=== PATIENT | female | born 2005 | race Caucasian/White ===

== ENCOUNTER 2024-04-14 17:38 | Emergency (ER) | payer OTHER, SELFPAY ==
--- NOTE | ~2024-04-14 | CT_ITS ---
EXAMINATION: CT abdomen pelvis w con DATE: 04/15/2024 03:51 INDICATION: Generalized abdominal pain TECHNIQUE: Computed tomography (CT) of the abdomen and pelvis was performed with 100 cc Omnipaque 350 intravenous contrast. The dose-length product was 293.42 mGy-cm. Automated exposure control and iter ative reconstruction technique were employed. COMPARISON: None. FINDINGS: Heart size normal. No significant pleural or pericardial effusion. No free air or free flui d. No significant vascular abnormality. No lymphadenopathy. The liver, spleen, pancreas, adrenal glands and kidneys are unremarkable. No acute osseous abnormalit y. Normal appendix. IMPRESSION: 1. No acute abdominal abnormality. Reviewed, dictated and finalized at location [facility]
[2024-04-14 17:46] VITALS: BP 119/68; PULSE 98; RESP 20; TEMP 36.5; O2SAT 100
--- NOTE | 2024-04-14 18:41 | ED_ITS ---
HPI - General Adult General Chief complaint: Abdominal Pain <Kika Parkinson July, LEVEL VIAL INSIDE GRINDER - Last Filed: 04/14/24 19:18> Stated complaint: abdominal pain <Kika Parkinson July,N - Last Filed: 04/14/24 19:18> Time Seen by Provider: 04/14/24 18:41 <Kika Parkinson July, LEVEL VIAL INSIDE GRINDER - Last Filed: 04/14/24 19:18> Focused HPI: Verenice Cunha is a 19 y/o female with complaints of having abdominal pain for about 3 days along with vaginal bleeding. She states that her last menstrual cycle was about 1 week ago. She reports of having nausea and vomited 2 days ago. She has eaten and drank fluids today and kept it down. Last BM was today Denies changes with urine Denies any fever/chills GENERAL: Well-appearing, well-nourished, and in no acute distress. HEAD: Normocephalic, atraumatic. CHEST: Clear to auscultation. ?No respiratory distress. HEART: Regular rate and rhythm.? NEURO: ?Alert and oriented x3. Patient screened in triage and initial orders placed.? ?Additional care and disposition to be based upon?diagnostic testing and treatment. <Kika Parkinson July,N - Last Filed: 04/14/24 19:18> Related Data Allergies/adverse reactions: Allergies Allergy/AdvReac Type Severity Reaction Status Date / Time No Known Allergies Allergy Verified 04/14/24 17:46 <Kika Parkinson July,N - Last Filed: 04/14/24 19:18> Review of Systems 2 Review of Systems: All systems reviewed & are unremarkable except as noted in HPI and below <Chikis Mendoza, LEVEL VIAL INSIDE GRINDER - Last Filed: 04/15/24 04:38> Exam 2 Narrative: GENERAL: Well appearing, well-nourished, non-toxic, in no acute distress. HEAD: Normocephalic, atraumatic. NECK: Supple. No adenopathy, no masses. RESPIRATORY: Airway patent, respirations nonlabored. Clear to auscultation bilaterally, no rales, rhonchi, wheezing. CARDIOVASCULAR: Regular rate and rhythm without murmurs, rubs, or gallops. Peripheral pulses 2+ and equal bilaterally. ABDOMINAL: Soft, generalized tenderness with palpation, nondistended, no hepatosplenomegaly. Normoactive BS. MUSCULOSKELETAL: Moves all extremities. Strength/ROM intact without gross deformities. SKIN: Warm, dry, normal color. No rashes. NEURO: A&O X3. Speech clear. Cranial nerves II-XII grossly intact. No ataxic movements. PSYCHIATRIC: Appropriate mood and affect. Normal interaction. <Chikis Mendoza APRN - Last Filed: 04/15/24 04:38> Course TOOLSMITH/PA Physician Supervision Patient's HPI, Exam, and MDM were reviewed and I agreed with the workup and disposition done in the emergency department by the MLP. I was available for consultation, but was not directly involved with patient's care nor did I evaluate the patient. <Jose De Jesus Dawson MD - Last Filed: 04/15/24 08:12> Vital Signs Vital signs: Vital Signs Temperature 36.5 C 04/14/24 17:46 Pulse Rate 98 04/14/24 17:46 Respiratory Rate 20 04/14/24 17:46 Blood Pressure 119/68 04/14/24 17:46 Pulse Oximetry 100 04/14/24 17:46 Oxygen Delivery Room Air 04/14/24 17:46 Temperature 36.5 C 04/14/24 17:46 Pulse Rate 84 04/15/24 04:46 Respiratory Rate 15 04/15/24 04:46 Blood Pressure 114/60 04/15/24 04:46 Pulse Oximetry 100 04/15/24 04:46 Oxygen Delivery Room Air 04/14/24 17:46 <Kika Balderrama APRN - Last Filed: 04/14/24 19:18> Vital Signs Temperature 36.5 C 04/14/24 17:46 Pulse Rate 98 04/14/24 17:46 Respiratory Rate 20 04/14/24 17:46 Blood Pressure 119/68 04/14/24 17:46 Pulse Oximetry 100 04/14/24 17:46 Oxygen Delivery Room Air 04/14/24 17:46 Temperature 36.5 C 04/14/24 17:46 Pulse Rate 84 04/15/24 04:46 Respiratory Rate 15 04/15/24 04:46 Blood Pressure 114/60 04/15/24 04:46 Pulse Oximetry 100 04/15/24 04:46 Oxygen Delivery Room Air 04/14/24 17:46 <Chikis Mendoza APRN - Last Filed: 04/15/24 04:38> Vital Signs Temperature 36.5 C 04/14/24 17:46 Pulse Rate 98 04/14/24 17:46 Respiratory Rate 20 04/14/24 17:46 Blood Pressure 119/68 04/14/24 17:46 Pulse Oximetry 100 04/14/24 17:46 Oxygen Delivery Room Air 04/14/24 17:46 Temperature 36.5 C 04/14/24 17:46 Pulse Rate 84 04/15/24 04:46 Respiratory Rate 15 04/15/24 04:46 Blood Pressure 114/60 04/15/24 04:46 Pulse Oximetry 100 04/15/24 04:46 Oxygen Delivery Room Air 04/14/24 17:46 <Jose De Jesus Dawson MD - Last Filed: 04/15/24 08:12> Medical Decision Making MDM Narrative Medical decision making narrative: Verenice Cunha is a 19 y/o female with complaints of having abdominal pain for about 3 days along with vaginal bleeding. She states that her last menstrual cycle was about 1 week ago. She reports of having nausea and vomited 2 days ago. She has eaten and drank fluids today and kept it down. Last BM was today. Denies changes with urine. Denies any fever/chills Labs Ordered: CBC, CMP, urinalysis, lipase Imaging Ordered: CT abdomen pelvis (d/t pt's generalized abdominal pain) Medications Ordered: Toradol 15 mg IV, Macrobid p.o., 1 L normal saline IV fluid Results: Patient's CBC and CMP were unremarkable, besides mild dehydration. Her urinalysis indicates patient has UTI. CT abdomen pelvis scan indicates no acute abnormalities. Diagnosis: Urinary tract infection Patient Education/Shared MDM: Results shared with patient. Patient endorses relief of pain after Toradol administration. She will be given her 1st dose of Macrobid here in the ER and then discharged with a prescription home. Patient should complete her entire dose. She should follow-up with her primary care provider in the next 2-3 days to ensure her infection has cleared. Patient strongly advised to maintain hydration upon discharge. She verbalizes understanding and is in agreement plan. Vital signs stable at time of discharge. All questions answered. <Chikis L. Kelly, LEVEL VIAL INSIDE GRINDER - Last Filed: 04/15/24 04:38> Differential Diagnosis Differential Diagnosis: UTI, dehydration, COVID, influenza, gastroenteritis <Chikis Mendoza, LEVEL VIAL INSIDE GRINDER - Last Filed: 04/15/24 04:38> Vital Signs Vital Signs: Vital Signs Temperature 36.5 C 04/14/24 17:46 Pulse Rate 98 04/14/24 17:46 Respiratory Rate 20 04/14/24 17:46 Blood Pressure 119/68 04/14/24 17:46 Pulse Oximetry 100 04/14/24 17:46 Oxygen Delivery Room Air 04/14/24 17:46 Temperature 36.5 C 04/14/24 17:46 Pulse Rate 84 04/15/24 04:46 Respiratory Rate 15 04/15/24 04:46 Blood Pressure 114/60 04/15/24 04:46 Pulse Oximetry 100 04/15/24 04:46 Oxygen Delivery Room Air 04/14/24 17:46 <Kika Balderrama, LEVEL VIAL INSIDE GRINDER - Last Filed: 04/14/24 19:18> Vital Signs Temperature 36.5 C 04/14/24 17:46 Pulse Rate 98 04/14/24 17:46 Respiratory Rate 20 04/14/24 17:46 Blood Pressure 119/68 04/14/24 17:46 Pulse Oximetry 100 04/14/24 17:46 Oxygen Delivery Room Air 04/14/24 17:46 Temperature 36.5 C 04/14/24 17:46 Pulse Rate 84 04/15/24 04:46 Respiratory Rate 15 04/15/24 04:46 Blood Pressure 114/60 04/15/24 04:46 Pulse Oximetry 100 04/15/24 04:46 Oxygen Delivery Room Air 04/14/24 17:46 <Chikis Mendoza, LEVEL VIAL INSIDE GRINDER - Last Filed: 04/15/24 04:38> Vital Signs Temperature 36.5 C 04/14/24 17:46 Pulse Rate 98 04/14/24 17:46 Respiratory Rate 20 04/14/24 17:46 Blood Pressure 119/68 04/14/24 17:46 Pulse Oximetry 100 04/14/24 17:46 Oxygen Delivery Room Air 04/14/24 17:46 Temperature 36.5 C 04/14/24 17:46 Pulse Rate 84 04/15/24 04:46 Respiratory Rate 15 04/15/24 04:46 Blood Pressure 114/60 04/15/24 04:46 Pulse Oximetry 100 04/15/24 04:46 Oxygen Delivery Room Air 04/14/24 17:46 <Jose De Jesus Dawson MD - Last Filed: 04/15/24 08:12> Lab Data Lab results reviewed: Yes I reviewed the patient's lab results. <Chikis Mendoza, LEVEL VIAL INSIDE GRINDER - Last Filed: 04/15/24 04:38> Result diagrams: 04/14/24 22:22 04/14/24 22:22 <Kika Balderrama, LEVEL VIAL INSIDE GRINDER - Last Filed: 04/14/24 19:18> Labs: Lab Results 04/14/24 Range/Units 22:22 WBC 7.9 (4.5-10.0) K/mm3 RBC 4.56 (4.2-5.4) M/mm3 Hgb 13.5 (12.0-15.0) g/dL Hct 41.2 (37.0-47.0) % MCV 90.4 (80-100) fl MCH 29.6 (26-34) pg MCHC 32.8 (32-36) g/dl RDW 13.1 (11.5-14.5) % Plt Count 317 (150-375) k/mm3 MPV 10.3 (7.4-10.4) fl Immature Gran % (Auto) 0.3 (0-0.5) % Neut % (Auto) 53.3 (45.5-73.1) % Lymph % (Auto) 34.5 (18.3-44.2) % [place] % (Auto) 9.9 H (2.6-8.5) % Eos % (Auto) 1.4 (0-4.4) % Baso % (Auto) 0.6 (0.2-1.2) % Lymph # (Auto) 2.72 (0.9-3.2) K/mm3 [place] # (Auto) 0.8 H (0.1-0.6) K/mm3 Eos # (Auto) 0.1 (0-0.3) K/mm3 Baso # (Auto) 0.1 (0.0-0.1) K/mm3 Abs Immat Gran (auto) 0.02 (0.00-0.031) K/mm3 Absolute Neuts (auto) 4.2 (1.3-6.7) K/mm3 Absolute Nucleated RBC 0.000 (0.0-0.012) K/mm3 Nucleated RBC % 0.0 (0.0-0.2) % Sodium 139 (137-145) mmol/L Potassium 4.2 (3.4-5.0) mmol/L Chloride 104 (98-107) mmol/L Carbon Dioxide 24 (22-30) mmol/L Anion Gap 11 (4-12) mmol/L BUN 13 (7-17) mg/dL Creatinine 0.56 L (0.7-1.0) mg/dL Estim Creat Clear Calc 117 ml/min Estimated GFR > 60 (59 - ) Glucose 94 (65-110) mg/dL Calcium 8.8 (8.4-10.2) mg/dL Total Bilirubin 0.4 (0.2-1.3) mg/dL AST 38 H (14-36) U/L ALT 39 H (6-35) U/L Alkaline Phosphatase 88 (38-126) U/L Total Protein 8.0 (6.3-8.2) g/dL Albumin 4.4 (3.5-5.1) g/dL Lipase 52 (23-300) U/L Urine Color Yellow (Yellow) Urine Appearance Turbid H (Clear) Urine pH 8.0 (5.0-9.0) Ur Specific Howard 1.020 (1.001-1.035) Urine Protein 1+ H (Negative) mg/dL Urine Glucose (UA) Negative (Negative) mg/dL Urine Ketones Negative (Negative) mg/dL Ur Blood (Man) 3+ H (Negative) Urine Nitrate Negative (Negative) Urine Bilirubin Negative (Negative) Urine Urobilinogen 1.0 (<2.0) mg/dL Leukocyte Esterase Rfl Trace H (Negative) ENRIQUE/UL Urine RBC 6-10 H (0-2) /hpf Urine WBC 21-50 H (0-3) /hpf Ur Squamous Epith Cells Few (Few) /hpf Urine Bacteria 1+ H /hpf Urine Casts 0-2 Urine Test Negative <Kika Balderrama, LEVEL VIAL INSIDE GRINDER - Last Filed: 04/14/24 19:18> Lab Results 04/14/24 Range/Units 22:22 WBC 7.9 (4.5-10.0) K/mm3 RBC 4.56 (4.2-5.4) M/mm3 Hgb 13.5 (12.0-15.0) g/dL Hct 41.2 (37.0-47.0) % MCV 90.4 (80-100) fl MCH 29.6 (26-34) pg MCHC 32.8 (32-36) g/dl RDW 13.1 (11.5-14.5) % Plt Count 317 (150-375) k/mm3 MPV 10.3 (7.4-10.4) fl Immature Gran % (Auto) 0.3 (0-0.5) % Neut % (Auto) 53.3 (45.5-73.1) % Lymph % (Auto) 34.5 (18.3-44.2) % [place] % (Auto) 9.9 H (2.6-8.5) % Eos % (Auto) 1.4 (0-4.4) % Baso % (Auto) 0.6 (0.2-1.2) % Lymph # (Auto) 2.72 (0.9-3.2) K/mm3 [place] # (Auto) 0.8 H (0.1-0.6) K/mm3 Eos # (Auto) 0.1 (0-0.3) K/mm3 Baso # (Auto) 0.1 (0.0-0.1) K/mm3 Abs Immat Gran (auto) 0.02 (0.00-0.031) K/mm3 Absolute Neuts (auto) 4.2 (1.3-6.7) K/mm3 Absolute Nucleated RBC 0.000 (0.0-0.012) K/mm3 Nucleated RBC % 0.0 (0.0-0.2) % Sodium 139 (137-145) mmol/L Potassium 4.2 (3.4-5.0) mmol/L Chloride 104 (98-107) mmol/L Carbon Dioxide 24 (22-30) mmol/L Anion Gap 11 (4-12) mmol/L BUN 13 (7-17) mg/dL Creatinine 0.56 L (0.7-1.0) mg/dL Estim Creat Clear Calc 117 ml/min Estimated GFR > 60 (59 - ) Glucose 94 (65-110) mg/dL Calcium 8.8 (8.4-10.2) mg/dL Total Bilirubin 0.4 (0.2-1.3) mg/dL AST 38 H (14-36) U/L ALT 39 H (6-35) U/L Alkaline Phosphatase 88 (38-126) U/L Total Protein 8.0 (6.3-8.2) g/dL Albumin 4.4 (3.5-5.1) g/dL Lipase 52 (23-300) U/L Urine Color Yellow (Yellow) Urine Appearance Turbid H (Clear) Urine pH 8.0 (5.0-9.0) Ur Specific Howard 1.020 (1.001-1.035) Urine Protein 1+ H (Negative) mg/dL Urine Glucose (UA) Negative (Negative) mg/dL Urine Ketones Negative (Negative) mg/dL Ur Blood (Man) 3+ H (Negative) Urine Nitrate Negative (Negative) Urine Bilirubin Negative (Negative) Urine Urobilinogen 1.0 (<2.0) mg/dL Leukocyte Esterase Rfl Trace H (Negative) ENRIQUE/UL Urine RBC 6-10 H (0-2) /hpf Urine WBC 21-50 H (0-3) /hpf Ur Squamous Epith Cells Few (Few) /hpf Urine Bacteria 1+ H /hpf Urine Casts 0-2 Urine Test Negative <Chikis Mendoza, LEVEL VIAL INSIDE GRINDER - Last Filed: 04/15/24 04:38> Lab Results 04/14/24 Range/Units 22:22 WBC 7.9 (4.5-10.0) K/mm3 RBC 4.56 (4.2-5.4) M/mm3 Hgb 13.5 (12.0-15.0) g/dL Hct 41.2 (37.0-47.0) % MCV 90.4 (80-100) fl MCH 29.6 (26-34) pg MCHC 32.8 (32-36) g/dl RDW 13.1 (11.5-14.5) % Plt Count 317 (150-375) k/mm3 MPV 10.3 (7.4-10.4) fl Immature Gran % (Auto) 0.3 (0-0.5) % Neut % (Auto) 53.3 (45.5-73.1) % Lymph % (Auto) 34.5 (18.3-44.2) % [place] % (Auto) 9.9 H (2.6-8.5) % Eos % (Auto) 1.4 (0-4.4) % Baso % (Auto) 0.6 (0.2-1.2) % Lymph # (Auto) 2.72 (0.9-3.2) K/mm3 [place] # (Auto) 0.8 H (0.1-0.6) K/mm3 Eos # (Auto) 0.1 (0-0.3) K/mm3 Baso # (Auto) 0.1 (0.0-0.1) K/mm3 Abs Immat Gran (auto) 0.02 (0.00-0.031) K/mm3 Absolute Neuts (auto) 4.2 (1.3-6.7) K/mm3 Absolute Nucleated RBC 0.000 (0.0-0.012) K/mm3 Nucleated RBC % 0.0 (0.0-0.2) % Sodium 139 (137-145) mmol/L Potassium 4.2 (3.4-5.0) mmol/L Chloride 104 (98-107) mmol/L Carbon Dioxide 24 (22-30) mmol/L Anion Gap 11 (4-12) mmol/L BUN 13 (7-17) mg/dL Creatinine 0.56 L (0.7-1.0) mg/dL Estim Creat Clear Calc 117 ml/min Estimated GFR > 60 (59 - ) Glucose 94 (65-110) mg/dL Calcium 8.8 (8.4-10.2) mg/dL Total Bilirubin 0.4 (0.2-1.3) mg/dL AST 38 H (14-36) U/L ALT 39 H (6-35) U/L Alkaline Phosphatase 88 (38-126) U/L Total Protein 8.0 (6.3-8.2) g/dL Albumin 4.4 (3.5-5.1) g/dL Lipase 52 (23-300) U/L Urine Color Yellow (Yellow) Urine Appearance Turbid H (Clear) Urine pH 8.0 (5.0-9.0) Ur Specific Howard 1.020 (1.001-1.035) Urine Protein 1+ H (Negative) mg/dL Urine Glucose (UA) Negative (Negative) mg/dL Urine Ketones Negative (Negative) mg/dL Ur Blood (Man) 3+ H (Negative) Urine Nitrate Negative (Negative) Urine Bilirubin Negative (Negative) Urine Urobilinogen 1.0 (<2.0) mg/dL Leukocyte Esterase Rfl Trace H (Negative) ENRIQUE/UL Urine RBC 6-10 H (0-2) /hpf Urine WBC 21-50 H (0-3) /hpf Ur Squamous Epith Cells Few (Few) /hpf Urine Bacteria 1+ H /hpf Urine Casts 0-2 Urine Test Negative <Jose De Jesus Dawson MD - Last Filed: 04/15/24 08:12> Discharge Plan Discharge Clinical Impression: Urinary tract infection, Mild dehydration <Kika Balderrama LEVEL VIAL INSIDE GRINDER - Last Filed: 04/14/24 19:18> Patient Disposition: Home, Self-Care <Kika Balderrama LEVEL VIAL INSIDE GRINDER - Last Filed: 04/14/24 19:18> Condition: Stable <Kika Parkinson July, LEVEL VIAL INSIDE GRINDER - Last Filed: 04/14/24 19:18> Instructions: Antibiotic Form, Urinary Tract Infection in Women (ED) <Kika Balderrama, LEVEL VIAL INSIDE GRINDER - Last Filed: 04/14/24 19:18> Additional Instructions: Please return to the ER with an worsening symptoms. Follow-up with primary care provider in the next 2-3 days. Take all medications as prescribed. <Kika Balderrama, LEVEL VIAL INSIDE GRINDER - Last Filed: 04/14/24 19:18> Patient Language: Bengali <Kika Parkinson July, LEVEL VIAL INSIDE GRINDER - Last Filed: 04/14/24 19:18> Prescriptions: New nitrofurantoin monohyd/m-cryst [Macrobid] 100 mg capsule 100 mg PO Q12H 5 Days Qty: 10 0RF Rx Instructions: must administer with a meal/food <Kika Balderrama LEVEL VIAL INSIDE GRINDER - Last Filed: 04/14/24 19:18> Follow-up/Referrals: PHYSICIAN,PRODUCE ASSOCIATE [Primary Care Provider] - <Kika Balderrama, LEVEL VIAL INSIDE GRINDER - Last Filed: 04/14/24 19:18> Time of Disposition: 04:38 <Kika Balderrama APRN - Last Filed: 04/14/24 19:18> 04:38 <Chikis Mendoza APRN - Last Filed: 04/15/24 04:38> 04:38 <Jose De Jesus Dawson MD - Last Filed: 04/15/24 08:12>
[2024-04-14 22:31] LABS: Basophils Absolute Auto 0.1 K/mm3 (0.0-0.1); Basophils Percent Auto 0.6 % (0.2-1.2); Eosinophils Absolute Auto 0.1 K/mm3 (0-0.3); Eosinophils Percent Auto 1.4 % (0-4.4); Hematocrit 41.2 % (37.0-47.0); Hemoglobin 13.5 g/dL (12.0-15.0); Immature Granulocyte Absolute 0.02 K/mm3 (0.00-0.031); Immature Granulocyte Percent A 0.3 % (0-0.5); Lymphocytes Absolute Auto 2.72 K/mm3 (0.9-3.2); Lymphocytes Percent Auto 34.5 % (18.3-44.2); Mean Corpuscular HGB Conc 32.8 g/dl (32-36); Mean Corpuscular Hemoglobin 29.6 pg (26-34); Mean Corpuscular Volume 90.4 fl (80-100); Mean Platelet Volume 10.3 fl (7.4-10.4); Monocytes Absolute Auto 0.8 K/mm3 (0.1-0.6); Monocytes Percent Auto 9.9 % (2.6-8.5); Neutrophils Absolute Auto 4.2 K/mm3 (1.3-6.7); Neutrophils Percent Auto 53.3 % (45.5-73.1); Platelet Count Result 317 k/mm3 (150-375); Red Blood Count 4.56 M/mm3 (4.2-5.4); Red Cell Distribution Width 13.1 % (11.5-14.5); White Blood Count 7.9 K/mm3 (4.5-10.0)
[2024-04-14 22:32] LABS: Add Urine Microscopic? YES; Appearance Urine Turbid (Clear); Bacteria Urine 1+ /hpf; Bilirubin Urine Negative (Negative); Blood Urine 3+ (Negative); Color Urine Yellow (Yellow); Glucose Urine UA Negative (Negative); Ketones Urine Negative (Negative); Leukocyte Esterase Ur Trace LEU/UL (Negative); Nitrate Urine Negative (Negative); Non Pathogenic Casts 0-2; Protein Urine 1+ mg/dL (Negative); Squamous Epithelial Cell Urine Few /hpf (Few); WBC Urine 21-50 /hpf (0-3)
[2024-04-14 22:45] LABS: Alanine Aminotransferase 39 U/L (6-35); Albumin Level 4.4 g/dL (3.5-5.1); Alkaline Phosphatase 88 U/L (38-126); Anion Gap 11 mmol/L (4-12); Aspartate Amino Transferase 38 U/L (14-36); Bilirubin,Total 0.4 mg/dL (0.2-1.3); Blood Urea Nitrogen 13 mg/dL (7-17); Calcium 8.8 mg/dL (8.4-10.2); Carbon Dioxide 24 mmol/L (22-30); Chloride 104 mmol/L (98-107); Estimated CRCL calculation 117 ml/min; Estimated Glomerular Filt Rate > 60; Glucose 94 mg/dL (65-110); Lipase 52 U/L (23-300); Potassium 4.2 mmol/L (3.4-5.0); Sodium 139 mmol/L (137-145)
--- OUTSIDE RECORDS SUMMARY | 2024-04-14 23:07 | XMS_ITS | Encounter Summary ---
Author Organization [facility] Address 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
--- OUTSIDE RECORDS SUMMARY | 2024-04-14 23:07 | XMS_ITS | Encounter Summary ---
Author Organization [facility] Address [address] [place] [address] Care Team Providers Care Car Spotter Name Role Phone Lemuel Eubanks MD Primary Care Provider [phone] Encounter Details Date Type Department Care Team (Late st Contact Info) Description 2004 Outpatient Historical [facility] [address] [facility] [address] [address] Anthony Anthony MD NO ADDRESS ON FILE Social History Tobacco Use Types Packs/Day Years Used Date Smoking Tobacco: Never Assessed Comments Unknown Sex and Gender Information Value Date Recorded Sex Assigned at Not on file 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
--- OUTSIDE RECORDS SUMMARY | 2024-04-14 23:07 | XMS_ITS | Encounter Summary ---
Author Organization [facility] Address 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 Negative: ??Group A Strep Screen Negative screen result was confirmed by culture. No Group A, C, or G beta Streptococcus isolated. ? [facility] Specimen from throat (specimen) 07/24/2008 3:46 PM CDT 07/24/2008 3:59 PM CDT us Pallavi Jackson MD MICROBIOLOGY - GENERAL ORD ERABLES Final Result INTERFACE SYSTEM Refer to clinic/hospital department [facility] CLIA# [id number] [address] [place] [address] documented in this encounter Visit Diagnoses Not on filedocumented in this encounter Care Teams Doll Dresser Relationship Specialty [place] [address] [address] PCP - General 01/22/07 documented as of this encounter
--- OUTSIDE RECORDS SUMMARY | 2024-04-14 23:07 | XMS_ITS | Encounter Summary ---
Author Organization [facility] Address [address] [place] [address] Care Team Providers Care Stock Sheets Cleaner Inspector Name Role Phone Lemuel Eubanks MD Primary Care Provider [phone] Encounter Details Date Type Department Care Team (Late st Contact Info) Description 2004 Outpatient Historical [facility] [address] [facility] [address] [address] Anthony Anthony MD NO ADDRESS ON FILE Social History Tobacco Use Types Packs/Day Years Used Date Smoking Tobacco: Never Assessed Comments Unknown Sex and Gender Information Value Date Recorded Sex Assigned at Not on file 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
--- OUTSIDE RECORDS SUMMARY | 2024-04-14 23:07 | XMS_ITS | Encounter Summary ---
Author Organization [facility] Address [address] [place] [address] Care Team Providers Care Community Affairs Director Name Role Phone Lemuel Eubanks MD Primary Care Provider [phone] Encounter Details Date Type Department Care Team (Late st Contact Info) Description 2004 Outpatient Historical [facility] [address] 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
--- OUTSIDE RECORDS SUMMARY | 2024-04-14 23:07 | XMS_ITS | Encounter Summary ---
Author Organization [facility] Address [address] [place] [address] Care Team Providers Care Consumer Electronics Merchandiser Name Role Phone Lemuel Eubanks MD Primary Care Provider [phone] Encounter Details Date Type Department Care Team (Late st Contact Info) Description 2004 Outpatient Historical [facility] [address] [facility] [address] [address] Anthony Anthony MD NO ADDRESS ON FILE Social History Tobacco Use Types Packs/Day Years Used Date Smoking Tobacco: Never Assessed Comments Unknown Sex and Gender Information Value Date Recorded Sex Assigned at Not on file 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
--- OUTSIDE RECORDS SUMMARY | 2024-04-14 23:07 | XMS_ITS | Encounter Summary ---
Author Organization [facility] Address [address] [place] [address] Care Team Providers Care Scouring Machine Tender Name Role Phone Lemuel Eubanks MD Primary Care Provider [phone] Encounter Details Date Type Department Care Team (Late st Contact Info) Description 2004 Outpatient Historical [facility] [address] [facility] [address] [address] Anthony Anthony MD NO ADDRESS ON FILE Social History Tobacco Use Types Packs/Day Years Used Date Smoking Tobacco: Never Assessed Comments Unknown Sex and Gender Information Value Date Recorded Sex Assigned at Not on file 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
--- OUTSIDE RECORDS SUMMARY | 2024-04-14 23:07 | XMS_ITS | Referral Summary ---
Author Organization [facility] Address [address] [facility] [place] [address] Care Team Providers Care Collective Bargaining Specialist Name Role Phone Unavailable Primary Care Provider Unavailabl e Source Comments [facility],non-owned Affiliates and Associated Physician Practices is amultiple site organization consisting of ambulatory clinics and hospital sitesin [place], [place], [place] and [place]. This disclosure is being madepursuant to the Care Everywhere program and may not contain all information available regarding this patient. Last updated 17.[employer] [facility] Allergies No known active allergies Medications Be aware that medications may not be up to date on this document. Always verify current medications with the patient. No known medications Active Problems Problem Noted Date Diagnosed Date Attention deficit hyperactiv ity disorder (ADHD), combined type 04/03/2019 Glaucoma 12/28/2013 06/08/2023 Overview (06/08/2023): Glaucoma Immunizations Name Administration Dates Next Due DTAP 5 PERTUSSIS ANTIGENS 2004 DTaP VACCINE IM (6wk-6yrs) 01/13/2008,,2004,05/12,2004 HEP A PEDS 2 DOSE 10/27/2008,12/26/2006 HEP B VACCINE, PED/ADOL 2004,2004, HIB-PRP-OMP 3 DOSE 01/30/2005,200 5,2004,02/28 HIB-PRP-T 4 DOSE 2004 Human Papilloma Virus Nineva lent Vaccine 01/24/2016,01/17/2015 INFLUENZA VACCINE, QUADR. (A FLURIA, FLUZONE QUADRIVALENT; 6MO+) (IIV4) 12/14/2016 INFLUENZA VACCINE, QUADR. (F LUZONE; FLULAVAL; FLUARIX; AFLURIA QUADRIVALENT; 6MO+), 0.5 ML (IIV4) 04/03/2019,12/27/2017,01/24/2016,01/17 GABRIEL VACCINE QUAD LAIV4 PF NASAL 12/28/2013,2012 MENINGOCOCCAL CONJUGATE (MCV4P) 01/17/2015 MMR 01/13/2008,01/22/2006 PNEUMOCOCCAL PCV7 CONJ, PEDS 2004 POLIO IPV 01/13/2008, 6,2004,02/28 Pneumococcal Pcv13 Conj 12/26/2006,01/30/2005, TDAP (7yrs+) 06/07/2023,01/17/2015 VARICELLA 01/13/2008,01/22/2006 Social History Tobacco Use Types Packs/Day Years Used Date Smoking Tobacco: Never Smokeless Tobacco: Never Sex and Gender Information Value Date Recorded Sex Assigned at Not on file Gender Identity Not on file Sexual Orientation Not on file Last Filed Vital Signs Vital Sign Reading Time Taken Comments Blood Pressure 145/92 06/07/2023 2:12 AM CDT Pulse 110 06/07/2023 2:12 AM CDT Temperature 37.1 ??C (98.8 ??F) 06/07/2023 2:12 AM CD T Respiratory Rate 18 06/07/2023 2:12 AM CDT Oxygen Saturation 93% 06/07/2023 2:12 AM CDT Inhaled Oxygen Concentration - - Weight 55.8 kg (123 lb) 06/07/2023 2:12 AM CDT Height 162.6 cm (5' 4 ) 06/07/2023 2:12 AM CDT Body Mass Index 21.11 06/07/2023 2:12 AM CDT Plan of Treatment Not on file
--- OUTSIDE RECORDS SUMMARY | 2024-04-14 23:07 | XMS_ITS | Encounter Summary ---
Author Organization [facility] Address [address] [place] [address] Care Team Providers Care Major Account Representative Name Role Phone Lemuel Eubanks MD Primary Care Provider [phone] Encounter Details Date Type Department Care Team (Late st Contact Info) Description 2004 Outpatient Historical [facility] [address] [facility] [address] [address] Anthony Anthony MD NO ADDRESS ON FILE Social History Tobacco Use Types Packs/Day Years Used Date Smoking Tobacco: Never Assessed Comments Unknown Sex and Gender Information Value Date Recorded Sex Assigned at Not on file Legal Sex Female 5:24 AM CERAMIC ENGINEER Gender Identity Not on file Sexual Orientation Not on file documented as of this encounter Plan of Treatment Not on file documented as of this encounter Visit Diagnoses Not on filedocumented in this encounter Care Teams Major Account Representative Relationship Specialty Start [place] [address] [place] [address] PCP - General 01/22/07 documented as of this encounter
--- OUTSIDE RECORDS SUMMARY | 2024-04-14 23:07 | XMS_ITS | Encounter Summary ---
Author Organization [facility] Address [address] [place] [address] Care Team Providers Care Children'S Tutor Name Role Phone Edward Suarez MD Unavailable [phone] Reason for Visit * Reason Onset Date Comments MEDICATION REFILL 12/30/2018 Encounter Details Date Type Department Care Team (Late st Contact Info) Description 12/30/2018 Refill [facility] - [facility] [address] [place] [address] Edward Suarez MD [address] [place] [address] MEDICATION REFILL Social History Tobacco Use Types Packs/Day Years [...] on filedocumented in this encounter Care Teams Children'S Tutor Relationship Specialty Start Date End Date Edward Suarez MD [address] [place] [address] PCP - Attributed-[employer] 08/16/18 08/13/19 documented as of this encounter
--- OUTSIDE RECORDS SUMMARY | 2024-04-14 23:07 | XMS_ITS | Encounter Summary ---
Author Organization [facility] Address [address] [place] [address] Care Team Providers Care Manager Strategic Partnerships Name Role Phone Lemuel Eubanks MD Primary Care Provider [phone] Encounter Details Date Type Department Care Team (Late st Contact Info) Description 2004 Outpatient Historical [facility] [address] [facility] [address] [address] Anthony Anthony MD NO ADDRESS ON FILE Social History Tobacco Use Types Packs/Day Years Used Date Smoking Tobacco: Never Assessed Comments Unknown Sex and Gender Information Value Date Recorded Sex Assigned at Not on file Legal Sex Female 5:24 AM COUNTER WEIGHER Gender Identity Not on file Sexual Orientation Not on file documented as of this encounter Plan of Treatment Not on file documented as of this encounter Visit Diagnoses Not on filedocumented in this encounter Care Teams Manager Strategic Partnerships Relationship Specialty [place] [address] [place] [address] PCP - General 01/22/07 documented as of this encounter
--- OUTSIDE RECORDS SUMMARY | 2024-04-14 23:07 | XMS_ITS | Referral Summary ---
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 Immunizations Name Administration Dates Next Due DTaP 01/13/2008, 6,2004,05/12,2004 HPV9 01/24/2016,01/17/2015 Hep A, Pediatric 10/27/2008,12/26/2006 Hep B, Adolescent or Pediatric 2004,2003,2004 Hib (PRP-OMP) 01/30/2005, 5,2004,02/28 IPV 01/13/2008, 6,2004,02/28 Influenza, Live, Intranasal, Quadrivalent 12/28/2013,03/28/2012 Influenza, Quadrivalent, Spl it, Preservative Free, Intramuscular 01/24/2016,01/17/2015 MMR 01/13/2008,01/22/2006 Meningococcal MCV4P (Menactra) 01/17/2015 Pneumococcal Conjugate PCV 13 12/26/2006, 005,2004 Tdap 01/17/2015 Varicella 01/13/2008,01/22/2006 Social History Tobacco Use Types Packs/Day Years Used Date Smoking Tobacco: Never Assessed Comments Unknown Sex and Gender Information Value Date Recorded Sex Assigned at Not on file Legal Sex Female 2:13 AM PADDER Gender Identity Not on file Sexual Orientation Not on file Last Filed Vital Signs Vital Sign Reading Time Taken Comments Blood Pressure 120/70 10/23/2023 5:10 PM CDT Pulse 71 10/23/2023 5:10 PM CDT Temperature 36.8 ??C (98.2 ??F) 10/23/2023 5:10 PM CD T Respiratory Rate 14 10/23/2023 5:10 PM CDT Oxygen Saturation 99% 10/23/2023 5:10 PM CDT Inhaled Oxygen Concentration - - Weight 49.4 kg (109 lb) 08/31/2021 7:48 PM CDT Height 162.6 cm (5' 4 ) 08/31/2021 7:48 PM CDT Body Mass Index 18.71 08/31/2021 7:48 PM CDT Plan of Treatment Not on file Insurance [facility] CHOICE OOS [facility] SIG [id number] [facility] CHOICE PLUS [facility] CHOICE OOS BLUE [facility] CHOICE OOS Care Teams Nonprofit Financial Controller Relationship Specialty Start Date End Date Maryse Hudson DO [address] [place] [address] PCP - General 08/31/21
--- OUTSIDE RECORDS SUMMARY | 2024-04-14 23:07 | XMS_ITS | Encounter Summary ---
Author Organization [facility] Address [address] [facility] Attn: [place] [address] Care Team Providers Care Laundry Bag Punch Operator Name Role Phone Lemuel Eubanks MD Primary Care Provider [phone] Encounter Details Date Type Department Care Team (Late st Contact Info) Description 2004 Inpatient Historical Anthony Anthony MD NO ADDRESS ON FILE SINGL BORN IN HOSP-NO C/DELIVERY (Primary Dx) Social History Tobacco Use Types Packs/Day Years Used Date Smoking Tobacco: Never Assessed Comments Unknown Sex and Gender Information Value Date Recorded Sex Assigned at Not on file Legal Sex Female 5:24 AM ALUMINUM CONTAINER TESTER Gender Identity Not on file Sexual Orientation Not on file documented as of this encounter Plan of Treatment Not on file documented as of this encounter Visit Diagnoses Diagnosis Single liveborn, born in hospital, delivered without mention of delivery- Primary documented in this encounter Care Teams Laundry Bag Punch Operator Relationship Specialty [place] [address] [place] [address] PCP - General 01/22/07 documented as of this encounter
--- OUTSIDE RECORDS SUMMARY | 2024-04-14 23:07 | XMS_ITS | Encounter Summary ---
Author Organization [employer] Address [address] [place] [address] Care Team Providers Care Tax Lawyer Name Role Phone Lemuel Kitchen MD Primary Care Provider [phone] Encounter Details Date Type Department Care Team (Late st Contact Info) Description 03/02/2008 Outpatient Historical [place] [address] [address] Urinary Tract Infection, Site not Specified Social History Tobacco Use Types Packs/Day Years Used Date Smoking Tobacco: Never Assessed Comments Unknown Sex and Gender Information Value Date Recorded Sex Assigned at Not on file Legal Sex Female 5:24 AM CIA AGENT Gender Identity Not on file Sexual Orientation Not on file documented as of this encounter Plan of Treatment Not on file documented as of this encounter Procedures Procedure Name Priority Date/Time Associated Diagnosis Comments US RETROPERITONEAL COMPLETE Timed Study 03/02/2008 1:20 PM CIA AGENT documented in this encounter Results * US RETROPERITONEAL COMPLETE (03/02/2008 1:20 PM CIA AGENT) Anatomical Region Laterality Modality Pelvis Other 03/02/2008 1:20 PM CIA AGENT Narrative 03/03/2008 10:50 AM CIA AGENT ? [place] [facility] ? [address] ?[place] ??[address] ?Admit Date: 03/02/2008 ? VERENICE CUNHA ?Sex: F ?Admit Prov: LEMUEL KITCHEN ? Date: 2005 ?Primary Care Prov: KEILY LITTLE H ?CMRN: [id number] ?Room: [facility] ? SSN: ? IMAGING SERVICES ?Ordering Prov: N/A ? Accession Number: [id number] ?Interpretation ? ULTRASOUND RETROPERITONEUM, 03/02/2008. ? Clinical History: Urinary tract infection. ? Sagittal and transverse real-time examination reveals the right kidney to ? be 7.5 cm in length and left kidney to be 7.4 cm in length. There is normal ? echogenicity and cortical medullary definition bilaterally. There is no ? evidence for mass, hydronephrosis, focal scarring, or shadowing stones on ? either side. ? There is mild bladder wall thickening particularly in the region of the ? trigone. The bladder otherwise appears unremarkable. The bladder wall ? thickening allows consideration of cystitis. ? Conclusion: ? Negative renal ultrasound. ? Some mild bladder wall thickening. ? . ? Dictated by: ??STEFFANIE NEGRETE ?03/02/2008 14:22 ? Electronically signed by: ??STEFFANIE NEGRETE ??03/03/2008 10:48 ? Transcribed: ??03/02/2008 23:04 ?[facility] Procedure Note Provider, Historical - 03/03/2008 [facility] [address] [place], [place] [address] Admit Date: 03/02/2008 VERENICE CUNHA Sex: F Admit Prov: LEMUEL KITCHEN Date:2005 Primary Care Prov: KEILY LITTLE CMRN: [id number] Room: [facility] SSN: IMAGING SERVICES Ordering Prov: N/A Interpretation ULTRASOUND RETROPERITONEUM, 03/02/2008. Clinical History: Urinary tract infection. Sagittal and transverse real-time examination reveals the rightkidney to be 7.5 cm in length and left kidney to be 7.4 cm in length. There isnormal echogenicity and cortical medullary definition bilaterally. There isno evidence for mass, hydronephrosis, focal scarring, or shadowingstones on either side. There is mild bladder wall thickening particularly in the region ofthe trigone. The bladder otherwise appears unremarkable. The bladderwall thickening allows consideration of cystitis. Conclusion: Negative renal ultrasound. Some mild bladder wall thickening. . Dictated by: STEFFANIE NEGRETE 03/02/2008 14:22 Electronically signed by: STEFFANIE NEGRETE 03/03/2008 10:48 Transcribed: 03/02/2008 23:04 [facility] us Lemuel Kitchen MD ORDERABLES Final Result documented in this encounter Visit Diagnoses Diagnosis Urinary tract infection, site not specified documented in this encounter Care Teams Tax Lawyer Relationship Specialty [place] [address] [place] [address] PCP - General 01/22/07 documented as of this encounter
--- OUTSIDE RECORDS SUMMARY | 2024-04-14 23:07 | XMS_ITS | Encounter Summary ---
Author Organization [facility] Address [address] [place] [address] Care Team Providers Care Winder Contort Operator Name Role Phone Lemuel Eubanks MD Primary Care Provider [phone] Encounter Details Date Type Department Care Team (Late st Contact Info) Description [address] [facility] Services [address] [address] Olamide Mckay AU.D [address] [place] [address] Social History Tobacco Use Types Packs/Day Years Used Date Smoking Tobacco: Never Assessed Comments Unknown Sex and Gender Information Value Date Recorded Sex Assigned at Not on file Legal Sex Female 5:24 AM GARMENT INSPECTOR Gender Identity Not on file Sexual Orientation Not on file documented as of this encounter Plan of Treatment Not on file documented as of this encounter Visit Diagnoses Not on filedocumented in this encounter Care Teams Winder Contort Operator Relationship Specialty [place] [address] [place] [address] PCP - General 01/22/07 documented as of this encounter
--- OUTSIDE RECORDS SUMMARY | 2024-04-14 23:07 | XMS_ITS | Encounter Summary ---
Author Organization [facility] Address [address] [place] [address] Care Team Providers Care Maintenance Mechanic Name Role Phone Lemuel Eubanks MD Primary Care Provider [phone] Encounter Details Date Type Department Care Team (Late st Contact Info) Description 2004 Outpatient Historical [facility] [address] [facility] [address] [address] Anthony Anthony MD NO ADDRESS ON FILE Social History Tobacco Use Types Packs/Day Years Used Date Smoking Tobacco: Never Assessed Comments Unknown Sex and Gender Information Value Date Recorded Sex Assigned at Not on file Legal Sex Female 5:24 AM ANIMAL KEEPER Gender Identity Not on file Sexual Orientation Not on file documented as of this encounter Plan of Treatment Not on file documented as of this encounter Visit Diagnoses Not on filedocumented in this encounter Care Teams Maintenance Mechanic Relationship Specialty [place] [address] [place] [address] PCP - General 01/22/07 documented as of this encounter
--- OUTSIDE RECORDS SUMMARY | 2024-04-14 23:07 | XMS_ITS | Encounter Summary ---
Author Organization [facility] Address [address] [place] [address] Care Team Providers Care Textile Machine Maintenance Mechanic Name Role Phone Lemuel Eubanks MD Primary Care Provider [phone] Encounter Details Date Type Department Care Team (Late st Contact Info) Description 2004 Outpatient Historical [facility] [address] [facility] [address] [address] Anthony Anthony MD NO ADDRESS ON FILE Social History Tobacco Use Types Packs/Day Years Used Date Smoking Tobacco: Never Assessed Comments Unknown Sex and Gender Information Value Date Recorded Sex Assigned at Not on file Legal Sex Female 5:24 AM BIOFUELS PLANT OPERATIONS ENGINEER Gender Identity Not on file Sexual Orientation Not on file documented as of this encounter Plan of Treatment Not on file documented as of this encounter Visit Diagnoses Not on filedocumented in this encounter Care Teams Textile Machine Maintenance Mechanic Relationship Specialty [place] [address] [place] [address] PCP - General 01/22/07 documented as of this encounter
--- OUTSIDE RECORDS SUMMARY | 2024-04-14 23:07 | XMS_ITS | Encounter Summary ---
Author Organization [facility] Address [address] [place] [address] Care Team Providers Care Harm Reduction Worker Name Role Phone Lemuel Eubanks MD Primary Care Provider [phone] Encounter Details Date Type Department Care Team (Late st Contact Info) Description 2004 Outpatient Historical [facility] [address] [facility] [address] [address] Anthony Anthony MD NO ADDRESS ON FILE Social History Tobacco Use Types Packs/Day Years Used Date Smoking Tobacco: Never Assessed Comments Unknown Sex and Gender Information Value Date Recorded Sex Assigned at Not on file Legal Sex Female 5:24 AM FOOD PROCESSING CHEMIST Gender Identity Not on file Sexual Orientation Not on file documented as of this encounter Plan of Treatment Not on file documented as of this encounter Visit Diagnoses Not on filedocumented in this encounter Care Teams Harm Reduction Worker Relationship Specialty [place] [address] [place] [address] PCP - General 01/22/07 documented as of this encounter
--- OUTSIDE RECORDS SUMMARY | 2024-04-14 23:07 | XMS_ITS | Patient Health Summary ---
Author Organization [facility] Address [address] [facility] [place] [address] Care Team Providers Care [place] Name Role Phone Unavailable Primary Care Provider Unavailabl e Note from [facility],non-owned Affiliates and Associated Physician Practices is amultiple site organization consisting of ambulatory clinics and hospital sitesin [place], [place] and [place]. This disclosure is being madepursuant to the Care Everywhere program and may not contain all information available regarding this patient. Last updated 17.[facility] Allergies No known active allergies Medications Be aware that medications may not be up to date on this document. Always verify current medications with the patient. No known medications Active Problems Problem Noted Date Diagnosed Date Attention deficit hyperactiv ity disorder (ADHD), combined type 04/03/2019 Glaucoma 12/28/2013 06/08/2023 Immunizations * DTAP 5 PERTUSSIS ANTIGENS(Given 2004) * DTaP VACCINE IM (6wk-6yrs)(Given 01/13/2008, 01/22/2006, 2004, 2004, 2004) * HEP A PEDS 2 DOSE(Given 10/27/2008, 12/26/2006) * HEP B VACCINE, PED/ADOL(Given 2004, 2004, 2004) * HIB-PRP-OMP 3 DOSE(Given 01/30/2005, 2004, 2004, 2004) * HIB-PRP-T 4 DOSE(Given 2004) * Human Papilloma Virus Ninevalent Vaccine(Given 01/24/2016, 01/17/2015) * INFLUENZA VACCINE, QUADR. (AFLURIA, FLUZONE QUADRIVALENT; 6MO+) (IIV4)(Given 12/14/2016) * INFLUENZA VACCINE, QUADR. (FLUZONE; FLULAVAL; FLUARIX; AFLURIA QUADRIVALENT; 6MO+), 0.5 ML (IIV4)(Given 04/03/2019, 12/27/2017, 01/24/2016, 01/17/2015) * GABRIEL VACCINE QUAD LAIV4 PF NASAL(Given 12/28/2013, 03/28/2012) * MENINGOCOCCAL CONJUGATE (MCV4P)(Given 01/17/2015) * MMR(Given 01/13/2008, 01/22/2006) * PNEUMOCOCCAL PCV7 CONJ, PEDS(Given 2004) * POLIO IPV(Given 01/13/2008, 01/22/2006, 2004, 2004) * Pneumococcal Pcv13 Conj(Given 12/26/2006, 01/30/2005, 2004) * TDAP (7yrs+)(Given 06/07/2023, 01/17/2015) * VARICELLA(Given 01/13/2008, 01/22/2006) Social History Tobacco Use Types Packs/Day Years [...] Mass Index 21.11 06/07/2023 2:12 AM CDT Procedures * ED LACERATION REPAIR(Performed 06/07/2023) Performed for Laceration of left forearm, initial encounter Results * Laceration Repair (06/07/2023 2:30 AM CDT) Narrative Ganga Myers MD - 06/07/2023 2:30 AM CDT Ganga Myers MD ? 06/08/2023 ??1:41 PM Laceration Repair Date/Time: 06/07/2023 2:30 AM Performed by: Ganga Myers MD Authorized by: Ganga Myers MD ?? Consent: ??Consent obtained: ??Verbal ??Consent given by: ??Patient ??Risks discussed: ??Infection and pain Coleman protocol: ??Procedure explained and questions answered to patient or proxy's satisfaction: yes ?Patient identity confirmed: ??Verbally with patient Anesthesia: ??Anesthesia method: ??Local infiltration ??Local anesthetic: ??Lidocaine 1% w/o epi Laceration details: ??Location: ??Shoulder/arm ??Shoulder/arm location: ??L lower arm ??Length (cm): ??4 Pre-procedure details: ??Preparation: ??Patient was prepped and draped in usual sterile fashion Exploration: ??Contaminated: no ?? Treatment: ??Amount of cleaning: ??Extensive ??Irrigation solution: ??Sterile saline ??Irrigation volume: ??750 mL ??Irrigation method: ??Pressure wash ??Debridement: ??None ??Undermining: ??None Skin repair: ??Repair method: ??Sutures ??Suture size: ??5-0 ??Suture material: ??Nylon ??Suture technique: ??Simple interrupted ??Number of sutures: ??8 Approximation: ??Approximation: ??Close Repair type: ??Repair type: ??Simple Post-procedure details: ??Dressing: ??Antibiotic ointment and sterile dressing ??Procedure completion: ??Tolerated well, no immediate complications Ganga Myers MD PROCEDURE/MINOR SURG ICAL ORDERABLES
--- OUTSIDE RECORDS SUMMARY | 2024-04-14 23:07 | XMS_ITS | Encounter Summary ---
Author Organization [facility] Address [address] [place] [address] Care Team Providers Care Flower Buncher Or Picker Name Role Phone Lemuel Eubanks MD Primary Care Provider [phone] Encounter Details Date Type Department Care Team (Late st Contact Info) Description 2004 Outpatient Historical [facility] [address] [facility] [address] [address] Anthony Anthony MD NO ADDRESS ON FILE Social History Tobacco Use Types Packs/Day Years Used Date Smoking Tobacco: Never Assessed Comments Unknown Sex and Gender Information Value Date Recorded Sex Assigned at Not on file Legal Sex Female 5:24 AM CREATIVE/ART DIRECTOR Gender Identity Not on file Sexual Orientation Not on file documented as of this encounter Plan of Treatment Not on file documented as of this encounter Visit Diagnoses Not on filedocumented in this encounter Care Teams Flower Buncher Or Picker Relationship Specialty [place] [address] [place] [id number] PCP - General 01/22/07 documented as of this encounter
--- OUTSIDE RECORDS SUMMARY | 2024-04-14 23:07 | XMS_ITS | Clinical Summary ---
Author Organization [facility] Address [address] [place] [address] Care Team Providers Care Hydraulic Press Servicer Name Role Phone Lemuel Eubanks MD Primary Care Provider [phone] Social History Tobacco Use Types Packs/Day Years Used Date Smoking Tobacco: Never Assessed Adolescent Education Answer Date Record ed Getting School Help Needed Not on file 10/02 Comments Unknown Sex and Gender Information Value Date Recorded Sex Assigned at Not on file Legal Sex Female 5:24 AM HOSPICE BEREAVEMENT COORDINATOR Gender Identity Not on file Sexual Orientation Not on file Plan of Treatment Health Maintenance Due Date Last Done Comments CHLAMYDIA SCREENING (ANNUAL) 11-24 YEARS 01/05/2015 HPV VACCINES (1 - 3-dose series) 01/05/2019 DTAP/TDAP/TD VACCINES (1 - Tdap) 01/05/2023 HEPATITIS B VACCINES (1 of 3 - 19+ 3-dose series) 01/05/2023 INFLUENZA VACCINE (#1) 2023 PNEUMOCOCCAL VACCINE 0-64 YEARS Aged Out No longer eligible based on patient's age to complete this topic Care Teams Hydraulic Press Servicer Relationship Specialty [place] [address] [place] [address] PCP - General 01/22/07
--- OUTSIDE RECORDS SUMMARY | 2024-04-14 23:07 | XMS_ITS | Clinical Summary ---
Author Organization [facility] Address [address] [place] [address] Care Team Providers Care Case Planner Name Role Phone Maryse Hudson DO Primary Care Provider [phone] Allergies No known active allergies Medications 04/06, [...] 13 12/26/2006, 005,2004 Tdap 01/17/2015 Varicella 01/13/2008,01/22/2006 Family History Medical History Relation Name Comments Other Father 2 Alive and well; Allergies Mother 2 Allergies; Asthma Mother 2 Asthma; Other Mother 2 Alive and well; Relation Name Status Comments Father 1 Alive Father 2 Mother 1 Alive Mother 2 Social History Tobacco Use Types Packs/Day Years Used Date Smoking Tobacco: Never Assessed Comments Unknown Sex and Gender Information Value Date Recorded Sex Assigned at Not on file 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 Gender Identity Not on file Sexual Orientation Not on file Obstetrics History Last Filed Vital Signs Vital Sign Reading [...] 08/31/2021 7:48 PM CDT Plan of Treatment Health Maintenance Due Date Last Done Comments Depression Screening 2004 Hepatitis C Screening 2004 Meningococcal B Vaccine (1 of 2 - Patient Seeks Protection) 2020 Regular Well Visit/Exam 18-64 01/05/2022 Influenza Vaccine (#1) 2023 , 12/27/2017, 12/14/2016, Additional history exists DTaP/Tdap/Td Vaccine (8 - Td or Tdap) 06/06/2033 06/07/2023, 01/17/2015, 01/13/2008, Additional history exists Pneumococcal vaccine <65 Completed 007, 01/30/2005, 2004, Additional history exists Varicella Vaccines Completed 01/13/2008, 01/22/2006 Meningococcal Vaccine Aged Out 01/17/2015 No juliet hamida eligible based on patient's age to complete this topic HPV Vaccines Completed 01/24/2016, 01/17/[address] [facility] CHOICE OOS [employer]ET[employer] SIG [id number] [facility] CHOICE PLUS [employer] CHOICE OOS [employer] CHOICE OOS Care Teams Case Planner Relationship Specialty Start Date End Date Maryse Hudson DO [address] [place], [place] [id number] PCP - General 08/31/21
--- OUTSIDE RECORDS SUMMARY | 2024-04-14 23:07 | XMS_ITS | Encounter Summary ---
Author Organization [facility] Address [address] [place] [address] Care Team Providers Care Steam Powerplant Supervisor Name Role Phone Lemuel Eubanks MD Primary Care Provider [phone] Encounter Details Date Type Department Care Team (Late st Contact Info) Description 2004 Outpatient Historical [facility] [address] [facility] [address] [address] Anthony Anthony MD NO ADDRESS ON FILE Social History Tobacco Use Types Packs/Day Years Used Date Smoking Tobacco: Never Assessed Comments Unknown Sex and Gender Information Value Date Recorded Sex Assigned at Not on file 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
--- OUTSIDE RECORDS SUMMARY | 2024-04-14 23:07 | XMS_ITS | Encounter Summary ---
Author Organization [employer] Address 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
--- OUTSIDE RECORDS SUMMARY | 2024-04-14 23:07 | XMS_ITS | Encounter Summary ---
Author Organization [facility] Address [address] [place] [address] Care Team Providers Care Warehouse Pricing And Inventory Clerk Name Role Phone Lemuel Eubanks MD Primary Care Provider [phone] Encounter Details Date Type Department Care Team (Late st Contact Info) Description [address] 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
--- OUTSIDE RECORDS SUMMARY | 2024-04-14 23:07 | XMS_ITS | Clinical Summary ---
Author Organization [facility] [employer] Address [address] [place] [address] Care Team Providers Care Streetcar Repairer Helper Name Role Phone Unavailable Primary Care Provider Unavailabl e Source Comments [facility] [employer],non-owned Affiliates and Associated Physician Practices is amultiple site organization consisting of ambulatory clinics and hospital sitesin [place], [place], [place] and [place]. This disclosure is being madepursuant to the Care Everywhere program and may not contain all information available regarding this patient. Last updated 17.[employer] Allergies No known active allergies Medications Be [...] 06/07/2023 2:12 AM CDT Plan of Treatment Health Maintenance Due Date Last Done Comments HIV SCREENING 01/05/2019 CHLAMYDIA/GONORRHEA SCREENING 2020 MENINGOCOCCAL (Group B) VACCINE (1 of 2 - Standard) 2020 HEPATITIS C SCREENING 01/01/2022 COVID-19 VACCINE ( season) 2023 02/13/2021, 11/22/2020 INFLUENZA VACCINE (#1) 2023 , 12/27/2017, 12/14/2016, Additional history exists DEPRESSION SCREENING 03/18/2024 DTAP/TDAP/TD VACCINES (8 - Td or Tdap) 06/06/2033 06/07/2023, 01/17/2015, 01/13/2008, Additional history exists ZOSTER VACCINE (1 of 2) 01/05/2054 HEPATITIS B VACCINE Completed 2004, 2004, 2004 HIB VACCINE Completed 01/30/2005, 06/17, 2004, Additional history exists PNEUMOCOCCAL VACCINE Completed 12/26/2006, 01/30/2005, 2004, Additional history exists MENINGOCOCCAL VACCINE Aged Out 01/17/2015 No juliet hamida eligible based on patient's age to complete this topic HPV VACCINE Completed 01/24/2016, 01/17/2015
--- OUTSIDE RECORDS SUMMARY | 2024-04-14 23:07 | XMS_ITS | Encounter Summary ---
Author Organization [facility] Address 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 [facility] ? [address] ?[place], [place] ??[address] ?Admit Date: 07/25/2007 ? VERENICE CUNHA J ?Sex: F ?Admit Prov: JALEEL BARNES ? Date: 2005 ?Primary Care Prov: LEMUEL KITCHEN F ? CMRN: [id number] ?Room: MDB-A ?SSN: ? IMAGING SERVICES ?Ordering Prov: N/A ? Accession Number: [id number] ?Interpretation ? Examination: Right 2nd and 3rd fingers. 07/25/2007 ? Clinical History: Pain. ? Findings: Examination of the right second and third fingers fails to ? demonstrate evidence of fracture, dislocation, or subluxation. ? Impression: ? Normal right second and third fingers. ? . ? Dictated by: ??Mercedes RESTREPO ? 07/25/2007 13:50 ? Electronically signed by: ??Mercedes RESTREPO ? 07/25/2007 15:37 ? Transcribed: ??07/25/2007 15:34 ?AMK Procedure Note Provider, Historical - 07/25/2007 [facility] [address] [place], [place] [address] Admit Date: 07/25/2007 VERENICE CUNHA Sex: F Admit Prov: JALEEL BARNES Date:2005 Primary Care Prov: LEMUEL KITCHEN CMRN: [id number] Room: [facility] SSN: IMAGING SERVICES Ordering Prov: N/A Interpretation Examination: Right 2nd and 3rd fingers. 07/25/2007 Clinical History: Pain. Findings: Examination of the right second and third fingers failsto demonstrate evidence of fracture, dislocation, or subluxation. Impression: Normal right second and third fingers. . Dictated by: Mercedes RESTREPO 07/25/2007 13:50 Electronically signed by: Mercedes RESTREPO 07/25/2007 15:37 Transcribed: 07/25/2007 15:34 AMK Jaleel Barnes MD DIAGNOSTIC IMAGING ORDERAB LES Final Result documented in this encounter Visit Diagnoses Diagnosis Injury, other and unspecified, finger documented in this encounter Care Teams Wood Veneer Taper Relationship Specialty [place] [address] [place] [address] PCP - General 01/22/07 documented as of this encounter
[2024-04-15] MEDS: NITROFURANTOIN MONOHYD MACROCR 100 MG CAP PO (02:09)
[2024-04-15] MEDS: KETOROLAC 15 MG/ML VIAL (*BKC) IV PUSH (02:09)
[2024-04-15] MEDS: SODIUM CHLORIDE 0.9% IV 1,000 ML 999 ML IV CONT (02:10)
[2024-04-15 02:15] VITALS: BP 120/66; PULSE 82; RESP 14; O2SAT 100
[2024-04-15 02:26] LABS: Pregnancy On Board Control Positive; Urine Pregnancy Test Negative
[2024-04-15 04:46] VITALS: BP 114/60; PULSE 84; RESP 15; O2SAT 100
== END 2024-04-15 04:50 | disposition home or self-care (01) ==
PROVIDERS: Nurse Practitioner Family; Emergency Provider Registered Nurse
DX: N39.0 Urinary tract infection, site not specified (principal); E86.0 Dehydration
CPT/HCPCS: 36415; 74177; 80053; 81001; 81025; 83690; 85025; 87086; 96361; 96374; 99284; A9270; J1885; J7030; Q9967